=== PATIENT | male | born 1990 | race Caucasian/White ===

== ENCOUNTER 2016-09-09 18:33 | Emergency (ER) | payer SELFPAY ==
--- NOTE | 2016-09-12 16:46 | ER ---
ADMIT: 09/09/2016 RM/LOC: ER [facility] MR#: [id number] [facility] [address] [place], [place] [id number] DAVIDSONVINCENZO Adelina [address] [place] [id number] Emergency Room Report SEX: M AGE: 26 : 1990 DATE: 09/09/2016 The patient is a 26-year-old male, who says he lives in [place], was caught by police, brought in to the ER. He says he was doing fine prior to getting cuffed by police and started complaining of shortness of breath and anxiety, twitching in his hands and feet. He was able to give verbal answers to every question. He admits to have had a suicidal episode in 2013 when he cut self as a form of suicidal plan. REVIEW OF SYSTEMS: Negative except for anxiety. PAST MEDICAL HISTORY: ADHD, supposed to take medication risperidone. ALLERGIES: HE IS ALLERGIC TO PENICILLIN. PAST SURGICAL HISTORY: He has finger surgery. SOCIAL HISTORY: He is a smoker, half a pack to one pack of cigarette smoke and he did Meth this morning at 2:00 a.m. PHYSICAL EXAMINATION: VITAL SIGNS: 134/68 blood pressure, heart rate is 89, respirations 22, temp is 97.3, and O2 sats 99%. GENERAL: Mildly anxious. HEENT: Normal inspection. His conjunctivae are erythematous, but he has also been crying. NECK: Supple. RESPIRATION: Chest nontender. No wheezes, rales, or rhonchi. CVS: Regular in rate and rhythm. SKIN: Multiple tattoos. Good color and turgor. Warm and dry. NEURO: Oriented x4. Tearful, anxious, answers questions appropriately. LABORATORY DATA: No labs done. CLINICAL IMPRESSION: Anxiety disorder, generalized; hyperventilation; placed medical clearance. The patient discharged to police custody. Good gait. No deficiency. Mikaela B Zima, PA / Lyle Rocha MD / modl JOB #: [id number] CC: Lyle Rocha MD, Attending Physician Dennis Lilly MD, Family Physician
== END 2016-09-09 18:46 ==
LOC: ER 18:33
DX: F41.1 Generalized anxiety disorder (principal); R06.4 Hyperventilation; F17.210 Nicotine dependence, cigarettes, uncomplicated; Z88.0 Allergy status to penicillin; Z79.899 Other long term (current) drug therapy; Z98.890 Other specified postprocedural states